=== PATIENT | male | born 1990 | race African-American/Black ===

== ENCOUNTER 2024-01-28 22:50 | Emergency (ER) | payer SELFPAY ==
[~2024-01-28] VITALS: Ht 182.9 cm; Wt 85.0 kg
[2024-01-28 23:01] VITALS: O2SAT 97
[2024-01-28 23:52] VITALS: BP 175/92; PULSE 106; RESP 15; TEMP 98.7
[2024-01-28] MEDS ORDERED: LORAZEPAM 2MG/ML INJ IV STA (23:52)
[2024-01-28] MEDS ORDERED: DIPHENHYDRAMINE 50MG/ML VIAL IV STA (23:52)
[2024-01-29] MEDS ORDERED: SODIUM CHLORIDE 0.9% 1,000 ML IV ONE
[2024-01-29 01:44] LABS: BASOPHILS % 0.4 % (0.0-2.0); EOSINOPHILS % 0.8 % (0.0-5.0); HEMATOCRIT. 45.1 % (42.0-52.0); HEMOGLOBIN. 15.2 g/dL (14.0-18.0); LYMPHOCYTES % 11.8 % (20.0-50.0); MEAN CORPUSCULAR HGB CONC 33.7 g/dL (31.0-37.0); MEAN PLATELET VOLUME 8.7 fl (7.4-10.4); MONOCYTES % 8.4 % (2.0-8.0); NEUTROPHILS % 78.6 % (40.0-76.0); PLATELET 282 x1000/uL (130-400); RED BLOOD CELL COUNT 5.06 mill/uL (4.7-6.1); RED CELL DISTRIBUTION WIDTH 13.6 % (11.6-14.6)
[2024-01-29 01:51] LABS: CHLORIDE 103 mEq/L (98-107); SODIUM 137 mEq/L (136-145)
[2024-01-29 01:52] LABS: CARBON DIOXIDE 24 mEq/L (21-32)
[2024-01-29 01:53] LABS: CALCIUM 9.3 mg/dL (8.7-10.4)
[2024-01-29 01:57] LABS: CREATININE 1.2 mg/dL (0.6-1.3); GLUCOSE 117 mg/dL (70-105); UREA NITROGEN BLOOD 8 mg/dL (9-23)
[2024-01-29 01:58] LABS: TROPONIN I HIGH SENSITIVITY 12 ng/L (3.0-53)
[2024-01-29 02:10] LABS: CREATINE KINASE 3134 IU/L (46-171)
[2024-01-29 02:14] LABS: ETHANOL BLOOD < 10 mg/dL (<10); POTASSIUM 2.7 mEq/L (3.5-5.1)
[2024-01-29] MEDS ORDERED: POTASSIUM CHLORIDE 20MEQ/PACKET PO ONE (02:30)
[2024-01-29] MEDS ORDERED: DIPHENHYDRAMINE 50MG/ML VIAL IV NR (03:00)
[2024-01-29] MEDS ORDERED: LORAZEPAM 2MG/ML INJ IV NR (03:00)
== END 2024-01-29 03:52 | disposition home or self-care (01) ==
LOC: ER 22:50
DX: G47.00 Insomnia, unspecified (principal); M62.82 Rhabdomyolysis; F14.10 Cocaine abuse, uncomplicated
CPT/HCPCS: 36415; 71045; 93005; 99285; 80048; 80320; 82550; 83605; 85025; 84484; J7030; G0480